=== PATIENT | female | born 1980 | race Two or more races ===

== ENCOUNTER 2016-05-10 | Emergency (ER) | payer SELFPAY ==
[2016-05-10] MEDS ORDERED: FAMOTIDINE 20 MG TABLET ONE (01:10)
== END 2016-05-10 01:21 | disposition home or self-care (01) ==
LOC: ED
DX: J06.9 Acute upper respiratory infection, unspecified (principal); K29.70 Gastritis, unspecified, without bleeding; H69.80 Other specified disorders of Eustachian tube, unspecified ear
CPT/HCPCS: 99282 ×2; A9270